=== PATIENT | male | born 1975 ===

== ENCOUNTER 2019-10-02 14:51 | Outpatient (REF) | payer BC, SELFPAY ==
[2019-10-06 11:00] LABS: PSA, Screening 0.9 ng/mL (0.0-2.5)
== END 2019-10-02 15:11 ==
LOC: LBN 14:51
PROVIDERS: Nurse Practitioner Family; PCP Nurse Practitioner Community Health; Visit Provider Nurse Practitioner Gerontology
DX: R36.1 Hematospermia (principal); Z12.5 Encounter for screening for malignant neoplasm of prostate; Z80.42 Family history of malignant neoplasm of prostate
CPT/HCPCS: 84153

== ENCOUNTER 2023-07-23 10:48 | Outpatient (REF) | payer OTHER, SELFPAY ==
[2023-07-23 14:42] LABS: HCT 48.7 % (40.0-50.0); HGB 16.3 g/dL (13.5-17.5); MCH 29.4 pg (27.0-33.0); MCHC 33.5 % (32.0-36.0); MCV 88 fL (80-95); MPV 10.5 fL (8.0-11.0); Platelet Count 318 10^3/uL (130-400); RBC 5.54 10^6/uL (4.36-5.78); RDW 11.9 % (11.8-14.1); RDW-SD 38.3 fL; WBC 6.05 10^3/uL (4.4-10.8)
[2023-07-23 14:58] LABS: ALT 34 U/L (16-63); AST 40 U/L (15-37); Alkaline Phosphatase 96 U/L (46-116); Anion Gap 7.7 mmol/L (3-11); BUN 14 mg/dL (7-18); Bilirubin, Total 0.5 mg/dL (0.2-1.0); CO2 27.3 mmol/L (21.0-32.0); CREATININE 0.9 mg/dL (0.70-1.30); Calcium 9.4 mg/dL (8.5-10.1); Calculated LDL 172 mg/dL (<100); Chloride 102 mmol/L (98-107); Cholesterol 265 mg/dL (<200); Estimated GFR 106.01 (mL/min/1.73m2); Glucose 98 mg/dL (74-106); HDL Cholesterol 69 mg/dL (40-60); Potassium 4.3 mmol/L (3.5-5.1); Sodium 137 mmol/L (136-145); Total Protein 8.1 g/dL (6.4-8.2); Triglyceride 121 mg/dL (<150)
[2023-07-23 15:38] LABS: Hemoglobin A1C 5.3 % (<5.7)
[2023-07-24 00:03] LABS: PSA, Screening 0.8 ng/mL (<=2.5)
[2023-07-24 08:52] LABS: Hepatitis C Ab w Rflx HCV PCR Negative (Negative)
== END 2023-07-23 10:49 | disposition home or self-care (01) ==
LOC: NCHCN 10:48
PROVIDERS: PCP Nurse Practitioner Community Health; Visit Provider Nurse Practitioner Family
DX: Z00.00 Encounter for general adult medical examination without abnormal findings (principal); Z80.42 Family history of malignant neoplasm of prostate
CPT/HCPCS: 80053; 80061; 84153; 85027; 86803; 83036